=== PATIENT | female | born 1980 | race Two or more races ===

== ENCOUNTER 2016-10-01 20:04 | Emergency (ER) | payer OTHER ==
[2016-10-01 20:15] VITALS: BP 148/91; PULSE 100; RESP 20; TEMP 98.2; O2SAT 98
--- NOTE | 2016-10-01 20:44 | EDPHY ---
H & P Stated Complaint: rash on face and body since starting metaxalone on Time Seen by Provider: 10/01/16 20:25 HPI/ROS: CHIEF COMPLAINT: Rash HISTORY OF PRESENT ILLNESS: the patient is a 36-year-old female who comes to the emergency department complaining of a rash throughout her entire body that began 2 days ago after she began taking Skelaxin for low back pain. She has not had a fever. It is pruritic. Is vesicular. She has not had any GI symptoms or respiratory symptoms. No recent viral symptoms or fevers. REVIEW OF SYSTEMS: Constitutional: denies: chills, fever, recent illness, recent injury EENTM: denies: blurred vision, double vision, nose congestion Respiratory: denies: cough, shortness of breath Cardiac: denies: chest pain, irregular heart rate, lightheadedness, palpitations Gastrointestinal/Abdominal: denies: abdominal pain, diarrhea, nausea, vomiting, blood streaked stools Genitourinary: denies: dysuria, frequency, hematuria, pain Musculoskeletal: denies: joint pain, muscle pain Skin: See HPI Neurological: denies: headache, numbness, paresthesia, tingling, dizziness, weakness Hematologic/Lymphatic: denies: blood clots, easy bleeding, easy bruising Immunologic/allergic: denies: HIV/AIDS, transplant EXAM: GENERAL: Well-appearing, well-nourished and in no acute distress. HEAD: Atraumatic, normocephalic. EYES: Pupils equal round and reactive to light, extraocular movements intact, sclera anicteric, conjunctiva are normal. ENT: TMs normal, nares patent, single small lesion on uvula. Moist mucous membranes. NECK: Normal range of motion, supple without lymphadenopathy or JVD. LUNGS: Breath sounds clear to auscultation bilaterally and equal. No wheezes rales or rhonchi. HEART: Regular rate and rhythm without murmurs, rubs or gallops. ABDOMEN: Soft, nontender, normoactive bowel sounds. No guarding, no rebound. No masses appreciated. BACK: No CVA tenderness, no spinal tenderness, step-offs or deformities EXTREMITIES: Normal range of motion, no pitting or edema. No clubbing or cyanosis. NEUROLOGICAL: Cranial nerves II through XII grossly intact. Normal speech, normal gait. 5/5 strength, normal movement in all extremities, normal sensation PSYCH: Normal mood, normal affect. SKIN: diffuse vesicular lesions, some umbilicated. Primarily head and neck. Someone extremities as well. Source: Patient Exam Limitations: No limitations - Personal History LMP (Females 10-55): Extended Cycle BCP/Inj Tetanus Vaccine Date: WITHIN 10 YEARS - Medical/Surgical History Hx Asthma: No Hx Chronic Respiratory Disease: No Hx Diabetes: No Hx Cardiac Disease: No Hx Renal Disease: No Hx Cirrhosis: No Hx Alcoholism: No Hx HIV/AIDS: No Hx Splenectomy or Spleen Trauma: No Other PMH: vaginal delivery, DNC, ovarian tumor and cyst - Family History Significant Family History: No pertinent family hx - Social History Smoking Status: Never smoked Alcohol Use: Sober Drug Use: None Constitutional: Initial Vital Signs Temperature (C) 36.8 C 10/01/16 20:10 Heart Rate 100 10/01/16 20:10 Respiratory Rate 20 10/01/16 20:10 Blood Pressure 148/91 H 10/01/16 20:10 O2 Sat (%) 98 10/01/16 20:10 O2 Delivery Mode Room Air Allergies/Adverse Reactions: No Known Allergies Allergy (Unverified 05/10/14 20:24) Home Medications: Medication Instructions Recorded IBUPROFEN 10/01/16 METAXALONE 10/01/16 Medical Decision Making ED Course/Re-evaluation: The patient has what appears to be a drug reaction. I will start her on antihistamine. She stopped taking the Skelaxin yesterday. Have her follow up with her primary Dr cooper on Sunday. We discussed indications for returning her as well. This could possibly be chickenpox although she thinks she was vaccinated. also possibly a post viral exanthem although no Symptoms of recent viral illness. Differential Diagnosis: Partial list of the Differential diagnosis considered include but were not limited to; Drug reaction acniform, acne, post viral reaction and although unlikely based on the history and physical exam, I also considered Pereira Lv's, urticaria. I discussed these differential diagnoses and the plan with the patient as well as the usual and expected course. The patient understands that the diagnosis is provisional and that in medicine we are not always correct and that further workup is often warranted. Usual and customary warnings were given. All of the patient's questions were answered. The patient was instructed to return to the emergency department should the symptoms at all worsen or return, otherwise to followup with the physician as we discussed. Departure - Departure Disposition: Home, Routine, Self-Care Clinical Impression: Drug rash Condition: Good Instructions: Acute Rash (ED) Additional Instructions: continue to take Benadryl every 4 hours to control itching. You may alternatively take Zyrtec or Codi. follow-up with your doctor on Sunday. Return here if her symptoms are worsening as we discussed. -- Continue tomando Benadryl cada 4 horas para controlar la comezon. Puede alternar Zyrtec o Codi. Max traci bobbi de seguimiento con quintero doctor el isha. Regrese si zion sintomas empeoran, fanta lo comentamos. Referrals: [facility],. [Clinic] - As per Instructions
== END 2016-10-01 21:05 | disposition home or self-care (01) ==
DX: R21 Rash and other nonspecific skin eruption (principal); T42.8X5A Adverse effect of antiparkinsonism drugs and other central muscle-tone depressants, initial encounter